=== PATIENT | male | born 1960 | race Two or more races ===

== ENCOUNTER 2022-03-24 12:59 | Emergency (ER) | payer OTHER, SELFPAY ==
--- NOTE | ~2022-03-24 | CT_ITS ---
EXAMINATION: CT ANGIOGRAM OF THE CHEST WITH AND WITHOUT CONTRAST (CT PULMONARY ANGIOGRAM FOR PE) CLINICAL INFORMATION: Unresponsive. COMPARISON: None TECHNIQUE: Prior to contrast administration, noncontrast localization images were obtained. Timing images with contrast were performed over the distal main pulmonary artery. IV contrast was administered for a total dose of 65 mL Omnipaque. During the exam, the patient had a cardiac arrest, and imaging after the timing images could not be performed. This CT examination was performed using dose optimization techniques as appropriate, variously including the following: *Automated exposure control *Adjustment of mA and/or kV according to patient size (this includes techniques or standardized protocols for targeted exams where dose is matched to indication/reason for exam; i.e. extremities or head) *Use of iterative reconstruction technique Total exam dose-length product 51 mGy-cm CT/CT angio chest PE protocol FINDINGS/IMPRESSION: Only the risk and compliance analytics director radiograph and timing images were performed. The CT pulmonary angiogram was not completed due to the patient's cardiac arrest. VTE: indeterminate
--- NOTE | ~2022-03-24 | CT_ITS ---
EXAMINATION: CT HEAD WITHOUT CONTRAST CLINICAL INFORMATION: Unresponsive. COMPARISON: None TECHNIQUE: Contiguous axial imaging was performed from the skull base to vertex without intravenous administration of contrast. This CT examination was performed using dose optimization techniques as appropriate, variously including the following: *Automated exposure control *Adjustment of mA and/or kV according to patient size (this includes techniques or standardized protocols for targeted exams where dose is matched to indication/reason for exam; i.e. extremities or head) *Use of iterative reconstruction technique DLP: 802 mGy-cm FINDINGS: There is no evidence of acute intracranial hemorrhage or edematous territorial infarction. A few foci of hypoattenuation in the periventricular and deep white matter are consistent with mild microangiopathy. Buchanan-white matter differentiation is preserved. Proportional prominence of the ventricles and sulcal spaces. No evidence for obstructive hydrocephalus. No abnormal mass effect or midline shift. No extra-axial fluid collections. No acute soft tissue or osseous abnormalities. The mastoid air cells and paranasal sinuses are clear. Periapical dental disease, for instance left superior premolars (8:66). Partially imaged endotracheal tube. CT/CT head/brain wo con IMPRESSION: No evidence of acute intracranial hemorrhage or edematous territorial infarction.
--- NOTE | ~2022-03-24 | XR_ITS ---
EXAMINATION: XR CHEST CLINICAL INFORMATION: Intubation. CTR. COMPARISON: None TECHNIQUE: Frontal view of the chest was obtained. FINDINGS: There is an endotracheal tube with tip 4.5 cm above the ranjana. The cardiac silhouette is enlarged. There is pulmonary venous redistribution. There are increased lung markings in the left perihilar region and at the left lung base. There is a small left pleural effusion. There is no right pleural effusion. There is no pneumothorax. There are degenerative changes of the spine. XR/XR chest 1V IMPRESSION: Satisfactory position of endotracheal tube. Enlarged cardiac silhouette. Pulmonary venous redistribution. Left perihilar and basilar airspace disease and small left pleural effusion.
--- NOTE | 2022-03-24 13:03 | PC.NURSE ---
at approximately 1300- pt was brought in by private vehicle. Per bystanders he's very sick . +diaphoresis in car. +response to verbal stimuli. Stood and pivot to wheel chair. Pt then had decreased responsiveness in wheelchair. Contact made to engineering agent. RR 8-10/min, +weak carotid pulse felt. 4mg Narcan given IN. Pt brought to bed 10. Dr. Flores to bedside. Ventilation with BVM began, +agonal breathing. 2nd 4mg Narcan given IN via verbal order.
--- NOTE | 2022-03-24 13:24 | ECG_ITS ---
Test Reason : [id number] overdose Blood Pressure : / mmHG Vent. Rate : 059 BPM Atrial Rate : 000 BPM P-R Int : 000 ms QRS Dur : 164 ms QT Int : 468 ms P-R-T Axes : 000 121 -36 degrees QTc Int : 463 ms Wide QRS rhythm with occasional Premature ventricular complexes Non-specific intra-ventricular conduction block Right ventricular hypertrophy Anterolateral infarct , age undetermined T wave abnormality, consider inferior ischemia Abnormal ECG No previous ECGs available Referred By: Ida Flores Electronically Signed By:CHEO QUIROGA
[2022-03-24 13:50] LABS: COVID-19 Test Negative (Negative); IDNOW Serial# 16C4AD1C
[2022-03-24 13:53] LABS: Alanine Aminotransferase 33 U/L (0-40); Alkaline Phosphatase 41 U/L (39-117); Anion Gap 20 (12-20); Aspartate Amino Transferase 37 U/L (5-37); Bilirubin Direct 0.3 mg/dL (0.0-0.5); Bilirubin Total 1.1 mg/dL (0.0-1.0); Blood Urea Nitrogen 19 mg/dL (9-16); Calcium 6.3 mg/dL (8.4-10.2); Carbon Dioxide 12 mmol/L (22-29); Chloride 110 mmol/L (96-108); D Dimer High Sensitivity 189 NG/ML; Estimated Glomerular Filt Rate > 60; Glucose Random 308 mg/dL (60-115); Lipase 36 U/L (8-78); Potassium 3.9 mmol/L (3.3-5.1); Sodium 138 mmol/L (135-145); Total Protein 5.1 g/dL (6.5-8.0)
[2022-03-24] MEDS: iohexoL 350 MG/ML 100 ML INFUS..BTL IV (14:24)
--- NOTE | 2022-03-24 14:35 | PC.NURSE ---
1428 - call placed to [facility]
--- NOTE | 2022-03-24 14:42 | PC.NURSE ---
NEDS refused pt
--- NOTE | 2022-03-24 14:49 | PC.NURSE ---
@ [phone] CALL PLACED TO MEDICAL EXAMINERS OFFICE AT DR PIERRE REQUEST ANAMARIA ANSWERS, TAKES PT INFO THEN ASKS TO SO SPEAK WITH DR IGNACIO PIERRE TAKES OVER CALL RIGHT AWAY TIME OF GIVEN [id number] PER ALESSANDRA Cloud
[2022-03-24 15:26] VITALS: BMI 27.8
--- NOTE | 2022-03-24 15:57 | ED_ITS ---
HPI - CPR General Chief Complaint: Cardiac Arrest/CPR Stated Complaint: Unresponsive Time Seen by Provider: 03/24/22 13:16 Source: family (A significant other) Mode of arrival: ambulatory Limitations: no limitations History of Present Illness HPI narrative: 61-year-old male was dropped off by his family seeing patient is very sick while patient in triage he became unresponsive brought in to the emergency department room 10 on the wheelchair unresponsive, cyanotic, faint radial pulse while preparing for intubation patient was given multiple doses of Narcan intranasally and intravenously with no respond, blood sugar was 300, using RSI technique patient was intubated, CPR was started with multiple doses of epinephrine and 1 amp of bicarb, after restoring patient's pulse and patient had blood pressure patient was sent for CT for diagnostic radiographic study of the head and chest and abdomen were the patient coded on the CT table losing pulse again CPR was started given 2 doses of epinephrine, patient turned to ventricular fibrillation, patient required to cardiovert at 200 Gudelia's and patient was given 300 of amiodarone IV, at this point patient has no pulse and no cardiac activity checked by ultrasound. Patient was pronounced at 14:05. History was obtained from a family member who introduced herself as significant other patient just came back from [place], had cardiac history of heart attack and congestive heart failure however declined using any drugs. Patient never been seen in our hospital with no old record, medical charge entry specialist was contacted and the case was declined with . Related Data Allergies Allergy/AdvReac Type Severity Reaction Status Date / Time aspirin [ASA] Allergy Unknown RASH Unverified 04/12/20 18:34 celecoxib [Celebrex] Allergy Unknown Verified 03/23/13 00:00 Review of Systems Review of Systems: Yes Unobtainable due to mental condition (Due to cardiac arrest) [facility] Social History Social History Advance Directives: No Advance Directives Information Provided: No Physical Exam Vital Signs: Vital Signs: BMI result Body Mass Index 27.8 General: Unresponsive, cyanotic, no breathing sounds, initially faint right femoral pulse. HEENT: Pupil is 3 mm fix not reacting to light. No sign of trauma. Mucous members cyanosis. Neck exam: No step-off, no trauma. No JVD Chest exam: Patient is intubated no spontaneous breathing, equal chest rise, no trauma. Abdominal exam: Slightly distended, no trauma. Lower extremities: Cyanotic no trauma. Neuro exam: Unresponsive, 3 mm fixed dilated pupil no motor activity. Course Course Course Narrative: 61-year-old male sudden , unfortunately unknown past medical history reportedly patient is from [place] and [place] Declined by medical charge entry specialist with case [id number]. MDM - Cardiac Arrest/CPR Lab Data Result diagrams: 03/24/22 13:31 Labs: Lab Results 03/24/22 03/24/22 03/24/22 Range/Units 13:31 13:31 13:31 D-Dimer High Sensitivty 189 NG/ML Sodium 138 (135-145) mmol/L Potassium 3.9 (3.3-5.1) mmol/L Chloride 110 H (96-108) mmol/L Carbon Dioxide 12 L (22-29) mmol/L Anion Gap 20 (12-20) BUN 19 H (9-16) mg/dL Creatinine 0.84 (0.5-1.4) mg/dL Estim Creat Clear Calc TNP Estimated GFR > 60 Random Glucose 308 H (60-115) mg/dL Calcium 6.3 L (8.4-10.2) mg/dL Total Bilirubin 1.1 H (0.0-1.0) mg/dL Direct Bilirubin 0.3 (0.0-0.5) mg/dL AST 37 (5-37) U/L ALT 33 (0-40) U/L Alkaline Phosphatase 41 (39-117) U/L Total Protein 5.1 L (6.5-8.0) g/dL Albumin 3.0 L (3.5-5.0) g/dL Lipase 36 (8-78) U/L COVID-19 (URIEL) Negative (Negative) COVID-19 Clin Com See Note Discharge Plan Discharge Clinical Impression: Cardiac arrest Patient Disposition: Date/Time: 03/24/22 14:05
[2022-03-25 08:19] LABS: Glucose, Whole Blood 309 mg/dL (60-115)
== END 2022-03-24 16:51 | disposition expired ==
PROVIDERS: Emergency Provider Emergency Medicine
DX: I46.9 Cardiac arrest, cause unspecified (principal); Z20.822 Contact with and (suspected) exposure to COVID-19
CPT/HCPCS: 31500; 36415; 70450; 71045; 71275; 80048; 80076; 82947; 83690; 85379; 87635; 93005; 96374; 96375; 99284; 99285; J0171; J0282; J3475; Q9967